=== PATIENT | male | born 1965 | race Caucasian/White ===

== ENCOUNTER 2019-02-01 00:47 | Emergency (ER) | payer OTHER ==
[~2019-02-01] VITALS: Ht 198.1 cm; Wt 120.2 kg
[~2019-02-01 00:47] MED LIST: ATEN50 PO; ESOM20 PO; FLUT110OIA IH; LEVA1.25 IH
[2019-02-01 03:11] LABS: BASOPHILS ABSOLUTE AUTO 0.05 K/mm3 (0.00-0.23); BASOPHILS PERCENT AUTO 0 % (0-2); EOSINOPHILS ABSOLUTE AUTO 0.05 K/mm3 (0.00-0.68); EOSINOPHILS PERCENT AUTO 0 % (0-6); Hematocrit 43.9 % (37.0-53.0); Hemoglobin 14.5 g/dL (13.5-17.5); IMMATURE GRAN ABSOLUTE AUTO 0.15 K/mm3 (0.00-0.10); IMMATURE GRAN PERCENT AUTO 1 % (0-1); LYMPHOCYTES PERCENT AUTO 16 % (21-46); MONOCYTES ABSOLUTE AUTO 1.24 K/mm3 (0.16-1.47); MONOCYTES PERCENT AUTO 9 % (4-13); Mean Corpuscular Volume 91 fL (80-100); Mean Platelet Volume 9.1 fL (9.1-12.4); NEUTROPHILS ABSOLUTE AUTO 10.47 K/mm3 (1.96-9.15); NEUTROPHILS PERCENT AUTO 74 % (41-73); Platelet Count 242 K/mm3 (150-400); RDW Standard Deviation 43.4 fL (35.1-46.3); Red Blood Cell Count 4.84 M/mm3 (4.30-5.90); White Blood Cell Count 14.16 K/mm3 (4.00-11.30)
[2019-02-01 03:28] LABS: Alanine Aminotransfer (ALT/SGP 20 U/L (12-78); Albumin, Blood 3.3 g/dL (3.4-5.0); Albumin/Globulin Ratio 0.8 (0.8-1.8); Alk Phos 135 U/L (50-136); Anion Gap 5 mmol/L (6-16); Aspartate Aminotrans (AST/SGOT 18 U/L (12-37); Bilirubin, Total 1.2 mg/dL (0.1-1.0); Blood Urea Nitrogen 22 mg/dL (8-24); Bun/Creatinine Ratio 27.5 (12.0-20.0); CO2, Blood 31 mmol/L (21-32); Calcium, Blood 8.8 mg/dL (8.5-10.1); Chloride, Blood 98 mmol/L (98-108); Globulin, Blood 4.1 g/dL (2.2-4.0); Glomerular Filtration Rate >60 (60-); Glucose, Blood 113 mg/dL (70-99); Potassium, Blood 3.8 mmol/L (3.5-5.5); Sodium, Blood 134 mmol/L (136-145); Total Protein, Blood 7.4 g/dL (6.4-8.2)
[2019-02-01] MEDS ORDERED: Vibramycin100 MG PO (03:36)
== END 2019-02-01 04:07 | disposition home or self-care (01) ==
LOC: ER 00:47
PROVIDERS: Emergency Medicine
DX: L03.116 Cellulitis of left lower limb (principal); D72.829 Elevated white blood cell count, unspecified; I10 Essential (primary) hypertension; Z87.891 Personal history of nicotine dependence; Z88.0 Allergy status to penicillin; Z88.2 Allergy status to sulfonamides
CPT/HCPCS: 36415; 73590; 80053; 85025; 96360; 96372-59; 99283-25; J1885; J7030

== ENCOUNTER 2021-03-26 21:57 | Emergency (ER) | payer SELFPAY ==
[~2021-03-26] VITALS: Ht 195.6 cm; Wt 127.0 kg
[~2021-03-26 21:57] MED LIST changes: +CLIN300 PO; +Vibramycin100 MG PO
== END 2021-03-26 23:59 | disposition home or self-care (01) ==
LOC: ER 21:57
DX: I83.892 Varicose veins of left lower extremity with other complications (principal); I10 Essential (primary) hypertension; J44.9 Chronic obstructive pulmonary disease, unspecified; K21.9 Gastro-esophageal reflux disease without esophagitis; G40.909 Epilepsy, unspecified, not intractable, without status epilepticus; Z88.0 Allergy status to penicillin; Z88.2 Allergy status to sulfonamides; Z88.5 Allergy status to narcotic agent
CPT/HCPCS: 99282

== ENCOUNTER 2023-04-30 21:52 | Inpatient (IN) | payer OTHER ==
[~2023-04-30] VITALS: Ht 195.6 cm; Wt 148.4 kg
[~2023-04-30 21:52] MED LIST changes: +AMLO5 PO; +FISH OIL 1,2001 EAC7 PO
[2023-04-30 23:39] LABS: BASOPHILS ABSOLUTE AUTO 0.08 K/mm3 (0.00-0.23); BASOPHILS PERCENT AUTO 0 % (0-2); EOSINOPHILS ABSOLUTE AUTO 0.01 K/mm3 (0.00-0.68); EOSINOPHILS PERCENT AUTO 0 % (0-6); Hematocrit 49.6 % (37.0-53.0); Hemoglobin 16.6 g/dL (13.5-17.5); IMMATURE GRAN ABSOLUTE AUTO 0.37 K/mm3 (0.00-0.10); IMMATURE GRAN PERCENT AUTO 2 % (0-1); LYMPHOCYTES ABSOLUTE AUTO 3.39 K/mm3 (0.84-5.20); LYMPHOCYTES PERCENT AUTO 15 % (21-46); MONOCYTES ABSOLUTE AUTO 1.56 K/mm3 (0.16-1.47); MONOCYTES PERCENT AUTO 7 % (4-13); Mean Corpuscular HGB 30.7 pg (26.0-34.0); Mean Corpuscular HGB Conc 33.5 g/dL (31.5-36.5); Mean Corpuscular Volume 92 fL (80-100); Mean Platelet Volume 8.9 fL (9.1-12.4); NEUTROPHILS ABSOLUTE AUTO 17.42 K/mm3 (1.96-9.15); NEUTROPHILS PERCENT AUTO 76 % (41-73); Platelet Count 170 K/mm3 (150-400); RDW Coefficient Variation 13.5 % (11.7-14.2); RDW Standard Deviation 45.8 fL (35.1-46.3); White Blood Cell Count 22.83 K/mm3 (4.00-11.30)
[2023-04-30 23:57] LABS: D-Dimer, Quantitative 0.82 mg/L FEU (0.00-0.52); International Normalized Ratio 1.19; Prothrombin Time Results 12.4 Sec (9.7-11.5)
[2023-05-01 00:01] LABS: Albumin, Blood 2.8 g/dL (3.4-5.0); Albumin/Globulin Ratio 0.5 (0.8-1.8); Bilirubin, Total 1.3 mg/dL (0.1-1.0); Bun/Creatinine Ratio 27.4 (12.0-20.0); Calcium, Blood 9.5 mg/dL (8.5-10.1); Creatinine, Blood 0.88 mg/dL (0.60-1.20); Globulin, Blood 5.3 g/dL (2.2-4.0); Potassium, Blood 4.3 mmol/L (3.5-5.5); Total Protein, Blood 8.1 g/dL (6.4-8.2)
[2023-05-01 01:24] LABS: Source, Urine Clean Catch
[2023-05-01 01:29] LABS: Appearance, Urine Clear (Clear); Bilirubin, Urine Neg (Neg); Blood, Urine 2+ (Neg); Color, Urine Amber (P-Yellow); Glucose Qualitative, Urine Neg (Neg); Ketones, Urine Neg (Neg); Leukocyte Esterase, Urine Neg (Neg); Nitrite, Urine Neg (Neg); Protein, Urine 4+ (Neg); Urobilinogen, Urine NORM (Normal)
[2023-05-01 01:46] LABS: Bacteria Few /hpf; Hyaline Casts 0-2 /lpf (0-2); Red Blood Cells, Urine 0-2 /hpf (0-2); Squamous Epithelial Cells Not Seen /hpf (Few); White Blood Cells, Urine 0-2 /hpf (0-5)
[2023-05-01 02:02] LABS: U Amphetamine Screen DETECTED; U Barbituate Screen Not Detected; U Benzodiazapine Screen Not Detected; U Buprenorphine Screen Not Detected; U Cannabinoids Screen DETECTED; U Cocaine Screen Not Detected; U Methadone Screen Not Detected; U Methamphetamine Screen DETECTED; U Opiates Screen Not Detected; U Oxycodone Screen Not Detected; U Phencyclidine Screen Not Detected
[2023-05-01 03:20] LABS: BASOPHILS ABSOLUTE AUTO 0.07 K/mm3 (0.00-0.23); BASOPHILS PERCENT AUTO 0 % (0-2); EOSINOPHILS ABSOLUTE AUTO 0.02 K/mm3 (0.00-0.68); EOSINOPHILS PERCENT AUTO 0 % (0-6); Hemoglobin 16.3 g/dL (13.5-17.5); IMMATURE GRAN ABSOLUTE AUTO 0.37 K/mm3 (0.00-0.10); IMMATURE GRAN PERCENT AUTO 2 % (0-1); LYMPHOCYTES ABSOLUTE AUTO 2.99 K/mm3 (0.84-5.20); LYMPHOCYTES PERCENT AUTO 14 % (21-46); MONOCYTES ABSOLUTE AUTO 1.36 K/mm3 (0.16-1.47); MONOCYTES PERCENT AUTO 6 % (4-13); Mean Corpuscular HGB 29.9 pg (26.0-34.0); Mean Corpuscular HGB Conc 32.6 g/dL (31.5-36.5); Mean Corpuscular Volume 92 fL (80-100); Mean Platelet Volume 9.1 fL (9.1-12.4); NEUTROPHILS ABSOLUTE AUTO 16.63 K/mm3 (1.96-9.15); NEUTROPHILS PERCENT AUTO 78 % (41-73); Platelet Count 187 K/mm3 (150-400); RDW Coefficient Variation 13.6 % (11.7-14.2); RDW Standard Deviation 45.9 fL (35.1-46.3); Red Blood Cell Count 5.45 M/mm3 (4.30-5.90); White Blood Cell Count 21.44 K/mm3 (4.00-11.30)
[2023-05-01 03:31] LABS: Albumin, Blood 2.8 g/dL (3.4-5.0); Albumin/Globulin Ratio 0.5 (0.8-1.8); Bilirubin, Total 1.1 mg/dL (0.1-1.0); Bun/Creatinine Ratio 25.6 (12.0-20.0); Calcium, Blood 9.1 mg/dL (8.5-10.1); Creatinine, Blood 0.82 mg/dL (0.60-1.20); Globulin, Blood 5.1 g/dL (2.2-4.0); Magnesium, Blood 2.2 mg/dL (1.6-2.4); Phosphorus, Blood 2.8 mg/dL (2.5-4.9); Potassium, Blood 4.3 mmol/L (3.5-5.5); Total Protein, Blood 7.9 g/dL (6.4-8.2)
[2023-05-01 03:50] VITALS: BP 157/87
--- NOTE | 2023-05-01 05:19 | NUR ---
SHIFT SUMMARY ASSUMED CARE OF PT AT 0350. PT IS A/OX4. HEART SOUNDS REGULAR. LUNG SOUNDS COURSE AND DIMINISHED. PT ON 2L NC WHILE SLEEPING. PT DESATS TO 85% BUT IS 92% WHILE AWAKE. PT STATES HE STILL HAS SOME CHEST DISCOMFORT BUT IS FEELING A LOT BETTER SINCE BEING ADMITTED. PT IS INDEPENDNT TO BATHROOM. PT HAS PURPLE EXTREMITIES IN WHICH IS STATES IS HIS NORMAL. PT SLEPT THE REST OF THE AM.
[2023-05-01 07:27] VITALS: BP 142/92
--- NOTE | 2023-05-01 07:44 | NUR ---
AM NOTE Pt wakes easily to verbal stimuli, oriented x4; falls asleep quickly. Calm and cooperative with care. Pt ind in room, resting in bed at this time. Pt denies pain, chest pain/pressure, sob, nausea, dizziness and numb/tingling. Tele sinus tach 100-120's, bp elevated. Spo2 >90% on 3l o2 via nc, tachypnic; ls coarse; pt found this am without o2, o2 saturation 78-86% on ra, replaced o2 at 4l, recovered quickly, tirated pt down to previous 2l, then pt desaturated while sleeping and titrated back up to 3l. Abd distended, firm, nontender, hypoactive bt t/o. Edema and discoloration noted to ble. Pt diaphoretic, temp 102.0, administered tylenol. Will continue to monitor.
[2023-05-01 12:00] VITALS: BP 125/89
--- NOTE | 2023-05-01 12:17 | NUR ---
ASSUMPTION OF CARE NOTE THIS RN ASSUMED CARE AT APPROX. 1100. PT IS SOMNOLENT BUT WAKES EASILY TO VERBAL STIMULI. VSS AT THIS TIME, SPO2 MAINTAINED >95% VIA 3L NC. PT DENIES FEELINGS OF CHEST PAIN/PRESSURE AT THIS TIME. LEVAQUIN IS INFUSING PER EMAR ORDERS IN L AC. CALL LIGHT IS W/IN REACH.
[2023-05-01 16:44] VITALS: BP 145/105
--- NOTE | 2023-05-01 18:21 | NUR ---
SHIFT SUMMARY PT IS ALERT AND ORIENTED X 4, HE IS ABLE TO MAKE HIS NEEDS KNOWN. VSS, SPO2 MAINTAINED >95% VIA 2L NC, PT DOES NOT WEAR 02 AT BASELINE BUT IS NOTED TO DESATURATE TO 80'S WHEN SLEEPING THEREFORE IS WEARING 2L NC PRIMARLY TO MAINTAIN O2 SATURATION DURING SLEEP. HE HAS DENIED FEELINGS OF CHEST PAIN/PRESSURE DURING SHIFT, SOB AND LIGHTHEADEDNESS/DIZZINESS. HE APPEARED DIAPHORETIC IN BEGINNING OF SHIFT AND WAS FEBRILE BUT HAS SINCE BEEN AFEBRILE, SEE EMAR FOR TEMPERATURE MANAGEMENT. HEPARIN DRIP IS INFUSING PER EMAR ORDERS. HE HAS BEEN INDEPENDENT/SBA TO BR TO VOID. HE APPEARED TO BE SLEEPING FOR MAJORITY OF SHIFT. CALL LIGHT IS W/IN REACH.
[2023-05-01 20:06] VITALS: BP 149/98
[2023-05-02 00:18] VITALS: BP 135/88
[2023-05-02 04:00] VITALS: BP 158/107
[2023-05-02 04:29] LABS: Hematocrit 50.5 % (37.0-53.0); Mean Corpuscular HGB Conc 31.7 g/dL (31.5-36.5); Mean Corpuscular Volume 95 fL (80-100); Mean Platelet Volume 9.3 fL (9.1-12.4); Platelet Count 184 K/mm3 (150-400); RDW Coefficient Variation 13.6 % (11.7-14.2); RDW Standard Deviation 47.8 fL (35.1-46.3); Red Blood Cell Count 5.34 M/mm3 (4.30-5.90); White Blood Cell Count 12.08 K/mm3 (4.00-11.30)
[2023-05-02 04:49] LABS: Calcium, Blood 9.1 mg/dL (8.5-10.1); Creatinine, Blood 0.78 mg/dL (0.60-1.20); Potassium, Blood 3.9 mmol/L (3.5-5.5)
--- NOTE | 2023-05-02 04:56 | NUR ---
SHIFT SUMMARY ASSUMED CARE OF PT AT 1900. PT IS A/OX4. HEART SOUNDS REGULAR. LUNG SOUNDS COURSE PT HAD HACKING PRODUCTIVE COUGH T/O THE NOC. SPUTUM PINK TINGED. PT HAD CP WHEN COUGHING. BUT WOULD DISAPPEAR WHILE AT REST. PT AWOKE AND TOOK A SHOWER. HEPRIN GTT RUNNING T/O THE NOC. PT C/O HEADACHE THIS AM, MEDICATED PER EMAR
[2023-05-02 07:36] VITALS: BP 141/88
--- NOTE | 2023-05-02 12:52 | NUR ---
AM NOTE: ASSUMED CARE OF PT, APPROX 0715, AFTER RECEIVING REPORT FROM TORIE BURRIS. PT HAS BEEN A&O, COOPERATIVE W/CARE, ANSWERING QUESTIONS APPROPRIATELY. PT DENIES SOB AT REST BUT STATES HE DOES GET SOB W/ACTIVITY. HARSH COUGH W/SMALL AMOUNT SPUTUM PRODUCTION W/CULTURE PENDING, O2 SATS >92% ON 3 L/MIN NC. PT DENIES CHEST PAIN AT REST BUT STATES HE DOES HAVE PAIN W/COUGHING THAT RESOLVES. REPEAT CT PE STUDY COMPLETED, RESULTS PENDING. HEPARIN CONTINUES INFUSING PER ORDERS. PURPLE/RED DISCOLORATION NOTED TO BILATERAL HANDS AND BLE, PT STATES NORMAL FOR HIM. PT HAS BEEN SBA FOR RESTROOM USE. AT THIS TIME, PT IS RESTING QUIETLY IN BED W/CALL LIGHT IN REACH. WILL CONTINUE TO MONITOR AND TREAT ACCORDINGLY UNTIL CHANGE OF SHIFT.
[2023-05-02 15:27] VITALS: BP 143/93
--- NOTE | 2023-05-02 18:51 | NUR ---
SHIFT SUMMARY: NO ACUTE CHANGES SINCE THIS AM's NOTE. PT CONTINUES A&Ox4, BEGINS TO NAP THIS EVENING AND O2 SATS OCCASIONALLY DROP BELOW 90% BUT QUICKLY RECOVER TO MID-HIGH 90s, O2 FLOW CURRENTLY AT 3 L/MIN NC. NO CHANGE TO SOB OR CP. PT ABLE TO MAKE NEEDS KNOWN. PT REPOSITIONING SELF, SBA TO RESTROOM, SHOWERS SELF INDEPENDENTLY THIS SHIFT. AT THIS TIME, PT IS RESTING QUIETLY IN ROOM WITH CALL LIGHT IN REACH. WILL CONTINUE TO MONITOR AND TREAT ACCORDINGLY UNTIL CHANGE OF SHIFT.
[2023-05-02 19:54] VITALS: BP 148/95
[2023-05-03 01:37] VITALS: BP 163/93
[2023-05-03 04:13] LABS: Hematocrit 50.9 % (37.0-53.0); Hemoglobin 16.1 g/dL (13.5-17.5); Mean Corpuscular HGB 30.1 pg (26.0-34.0); Mean Corpuscular HGB Conc 31.6 g/dL (31.5-36.5); Mean Corpuscular Volume 95 fL (80-100); Mean Platelet Volume 9.4 fL (9.1-12.4); Platelet Count 206 K/mm3 (150-400); RDW Coefficient Variation 13.5 % (11.7-14.2); RDW Standard Deviation 47.8 fL (35.1-46.3); Red Blood Cell Count 5.35 M/mm3 (4.30-5.90); White Blood Cell Count 7.55 K/mm3 (4.00-11.30)
[2023-05-03 04:33] LABS: Bun/Creatinine Ratio 19.8 (12.0-20.0); Creatinine, Blood 0.86 mg/dL (0.60-1.20)
--- NOTE | 2023-05-03 05:37 | NUR ---
SHIFT SUMMARY ASSUMED CARE OF PT AT 1900. PT IS A/OX4. HEART SOUNDS REGULAR. LUNG SOUNDS HAVE CRACKLES AT THE BASES. PT WORE 3L NC DURING THE NOC. PT DESATURATED WITH SLEEP BUT WOULD RETURN TO 90% AND ABOVE. PT C/O HEADACHE, MEDICATED PER EMAR. PT WALKED AROUND UNIT. PT C/O FEELING WEAK BUT TOLERATED IT WELL.
[2023-05-03 08:02] VITALS: BP 124/81
[2023-05-03 11:14] VITALS: BP 171/93
[2023-05-03] MEDS ORDERED: VISBIOME 112.51 EACH PO (11:16)
[2023-05-03 11:17] VITALS: BP 158/86
[2023-05-03] MEDS ORDERED: LEVOFLOXACIN750 MG PO (11:18)
[2023-05-03] MEDS ORDERED: ROBITUSSIN100 MG/5 M PO (11:18)
[2023-05-03] MEDS ORDERED: Prinivil10 MG PO (11:29)
[2023-05-03] MEDS ORDERED: METF500 PO (11:29)
--- NOTE | 2023-05-03 13:20 | NUR ---
DISCHARGE this rn assumed care at 0700. vital signs stable and remained stable. patient is alert and oriented x4. perrla. patient was independent in the room. see shift assessment for further detials. patient educated on importance of follow up appointments and to have a outpatient sleep study done. patient verbalized understanding and has an appointment scheduled. patient left with all belongings and in no distress. medications faxed to [email or web address]. patient educated on medications and importance of taking full course of abx.
== END 2023-05-03 13:09 | disposition home or self-care (01) | DRG 871 ==
LOC: ER 21:52 → PCU 05-01 03:04
PROVIDERS: Emergency Medicine; Family Medicine; Internal Medicine; ADMIT Internal Medicine
DX: A41.9 Sepsis, unspecified organism (principal); J18.9 Pneumonia, unspecified organism; J96.01 Acute respiratory failure with hypoxia; J44.0 Chronic obstructive pulmonary disease with (acute) lower respiratory infection; R65.20 Severe sepsis without septic shock; R79.1 Abnormal coagulation profile; G47.33 Obstructive sleep apnea (adult) (pediatric); I10 Essential (primary) hypertension; K21.9 Gastro-esophageal reflux disease without esophagitis; G40.909 Epilepsy, unspecified, not intractable, without status epilepticus; E87.70 Fluid overload, unspecified; F19.10 Other psychoactive substance abuse, uncomplicated; Z86.14 Personal history of Methicillin resistant Staphylococcus aureus infection; Z87.891 Personal history of nicotine dependence; Z28.21 Immunization not carried out because of patient refusal
CPT/HCPCS: 36415; 71046; 71260; 80048; 80053; 81001; 83605; 83735; 83880; 84100; 84145; 84484; 85025; 85027; 85379; 85610; 85730; 87040; 87070; 87205; 93005; 93010; 93306; 94640; 94664; 94760; 94761; 94762; 96365; 96368; 99285-25; A9270; J0456; J0696; J1644; J1650; J1956; J2250; J3010; J7030; J7050; Q9967

== ENCOUNTER 2023-11-05 01:22 | Emergency (ER) | payer OTHER ==
[~2023-11-05] VITALS: Ht 198.1 cm; Wt 145.2 kg
[~2023-11-05 01:22] MED LIST changes: +LEVOFLOXACIN750 MG PO; +METF500 PO; +Prinivil10 MG PO; +ROBITUSSIN100 MG/5 M PO; +VISBIOME 112.51 EACH PO
[2023-11-05] MEDS ORDERED: Acetaminophen 500 MG Tab PO ONE (03:30)
[2023-11-05] MEDS ORDERED: Ibuprofen 600 MG Tab PO ONE (03:30)
[2023-11-05 04:07] VITALS: BP 165/88
== END 2023-11-05 04:07 | disposition home or self-care (01) ==
LOC: ER 01:22
DX: S60.222A Contusion of left hand, initial encounter (principal); J44.9 Chronic obstructive pulmonary disease, unspecified; I10 Essential (primary) hypertension; K21.9 Gastro-esophageal reflux disease without esophagitis; W06.XXXA Fall from bed, initial encounter; Z87.891 Personal history of nicotine dependence; Z79.84 Long term (current) use of oral hypoglycemic drugs; Z79.899 Other long term (current) drug therapy; Z88.0 Allergy status to penicillin; Z88.2 Allergy status to sulfonamides; Z88.5 Allergy status to narcotic agent; Z91.013 Allergy to seafood
CPT/HCPCS: 73130; 99283-25; A9270

== ENCOUNTER 2024-03-08 03:33 | Emergency (ER) | payer OTHER ==
[~2024-03-08] VITALS: Ht 195.6 cm; Wt 145.2 kg
[2024-03-08] MEDS ORDERED: ALBUTEROL HFA 90MCG (03:59)
[2024-03-08] MEDS ORDERED: LOSARTAN POTASS25 M2 PO (03:59)
[2024-03-08 04:10] LABS: BASOPHILS ABSOLUTE AUTO 0.04 K/mm3 (0.00-0.23); BASOPHILS PERCENT AUTO 1 % (0-2); EOSINOPHILS ABSOLUTE AUTO 0.21 K/mm3 (0.00-0.68); EOSINOPHILS PERCENT AUTO 3 % (0-6); Hematocrit 49.2 % (37.0-53.0); Hemoglobin 16.4 g/dL (13.5-17.5); IMMATURE GRAN ABSOLUTE AUTO 0.06 K/mm3 (0.00-0.10); IMMATURE GRAN PERCENT AUTO 1 % (0-1); LYMPHOCYTES ABSOLUTE AUTO 2.65 K/mm3 (0.84-5.20); LYMPHOCYTES PERCENT AUTO 31 % (21-46); MONOCYTES ABSOLUTE AUTO 0.64 K/mm3 (0.16-1.47); MONOCYTES PERCENT AUTO 8 % (4-13); Mean Corpuscular HGB 31.8 pg (26.0-34.0); Mean Corpuscular HGB Conc 33.3 g/dL (31.5-36.5); Mean Corpuscular Volume 95 fL (80-100); Mean Platelet Volume 8.9 fL (9.1-12.4); NEUTROPHILS ABSOLUTE AUTO 4.92 K/mm3 (1.96-9.15); NEUTROPHILS PERCENT AUTO 58 % (41-73); Platelet Count 204 K/mm3 (150-400); RDW Coefficient Variation 13.2 % (11.7-14.2); RDW Standard Deviation 46.3 fL (35.1-46.3); Red Blood Cell Count 5.16 M/mm3 (4.30-5.90); White Blood Cell Count 8.52 K/mm3 (4.00-11.30)
[2024-03-08 04:30] LABS: Albumin, Blood 3.5 g/dL (3.4-5.0); Albumin/Globulin Ratio 0.9 (0.8-1.8); Bilirubin, Total 0.6 mg/dL (0.1-1.0); Bun/Creatinine Ratio 22.1 (12.0-20.0); Calcium, Blood 9.3 mg/dL (8.5-10.1); Creatinine, Blood 1.04 mg/dL (0.60-1.20); Globulin, Blood 4.1 g/dL (2.2-4.0); Potassium, Blood 4.3 mmol/L (3.5-5.5); Total Protein, Blood 7.6 g/dL (6.4-8.2)
[2024-03-08] MEDS ORDERED: MethylPREDNISolone Sod Succ 125 MG Vial IV ONE (06:25)
[2024-03-08] MEDS ORDERED: Ipratropium/Albuterol SulF 2.5-0.5MG/3 ML Amp INH ONE (06:25)
[2024-03-08] MEDS ORDERED: Furosemide 10 MG/ML 4ML Vial IV ONE (06:25)
[2024-03-08 07:30] VITALS: BP 176/103
[2024-03-08] MEDS ORDERED: FURO20 PO (09:07)
[2024-03-08] MEDS ORDERED: CIPR500 PO (09:08)
[2024-03-08] MEDS ORDERED: LevoFLOXacin 750 MG Tab PO ONE (09:10)
== END 2024-03-08 09:35 | disposition home or self-care (01) ==
LOC: ER 03:33
PROVIDERS: Student in an Organized Health Care Education/Training Program
DX: J18.9 Pneumonia, unspecified organism (principal); M79.89 Other specified soft tissue disorders; I10 Essential (primary) hypertension; J44.9 Chronic obstructive pulmonary disease, unspecified; K21.9 Gastro-esophageal reflux disease without esophagitis; Z87.891 Personal history of nicotine dependence; Z88.0 Allergy status to penicillin; Z88.2 Allergy status to sulfonamides; Z88.5 Allergy status to narcotic agent; Z91.013 Allergy to seafood; Z79.899 Other long term (current) drug therapy
CPT/HCPCS: 71045; 80053; 83880; 84484; 85025; 85379; 93005; 93010; 94640; 94664; 96374; 96375; 99285-25; A9270; J1940; J2919

== ENCOUNTER 2024-04-24 07:37 | Emergency (ER) | payer OTHER ==
[~2024-04-24] VITALS: Ht 200.7 cm; Wt 154.2 kg
[~2024-04-24 07:37] MED LIST changes: +ALBUTEROL HFA 90MCG; +CIPR500 PO; +FURO20 PO; +LOSARTAN POTASS25 M2 PO
[2024-04-24 07:48] VITALS: BP 178/98
[2024-04-24] MEDS ORDERED: Norco 5-325 Ta1 EACH PO (08:51)
== END 2024-04-24 09:11 | disposition home or self-care (01) ==
LOC: ER 07:37
DX: S22.41XA Multiple fractures of ribs, right side, initial encounter for closed fracture (principal); I10 Essential (primary) hypertension; J44.9 Chronic obstructive pulmonary disease, unspecified; K21.9 Gastro-esophageal reflux disease without esophagitis; V89.9XXA Person injured in unspecified vehicle accident, initial encounter; Z87.891 Personal history of nicotine dependence
CPT/HCPCS: 71101; 99283-25

== ENCOUNTER 2024-05-02 03:20 | Emergency (ER) | payer OTHER ==
[~2024-05-02] VITALS: Ht 198.1 cm; Wt 154.2 kg
[~2024-05-02 03:20] MED LIST changes: +Norco 5-325 Ta1 EACH PO
[2024-05-02] MEDS ORDERED: HYDROcodone 5-APAP 325 TAB PO ONE (05:30)
[2024-05-02 06:30] VITALS: BP 188/142
== END 2024-05-02 06:53 | disposition home or self-care (01) ==
LOC: ER 03:20
DX: S91.302A Unspecified open wound, left foot, initial encounter (principal); L97.228 Non-pressure chronic ulcer of left calf with other specified severity; I87.2 Venous insufficiency (chronic) (peripheral); Z87.891 Personal history of nicotine dependence; I10 Essential (primary) hypertension; J44.9 Chronic obstructive pulmonary disease, unspecified; K21.9 Gastro-esophageal reflux disease without esophagitis; Z86.14 Personal history of Methicillin resistant Staphylococcus aureus infection; Z88.0 Allergy status to penicillin; Z88.2 Allergy status to sulfonamides; Z88.5 Allergy status to narcotic agent; Z91.013 Allergy to seafood; Z79.899 Other long term (current) drug therapy; W22.09XA Striking against other stationary object, initial encounter
CPT/HCPCS: 73610; 99283-25; A9270

== ENCOUNTER 2024-08-13 05:22 | Inpatient (IN) | payer OTHER ==
[~2024-08-13] VITALS: Ht 195.6 cm; Wt 159.8 kg
[2024-08-13] VITALS (9 sets, daily range): BP systolic 114–142; BP diastolic 81–106
[2024-08-13 05:54] LABS: BASOPHILS ABSOLUTE AUTO 0.07 K/mm3 (0.00-0.23); BASOPHILS PERCENT AUTO 1 % (0-2); EOSINOPHILS ABSOLUTE AUTO 0.16 K/mm3 (0.00-0.68); EOSINOPHILS PERCENT AUTO 1 % (0-6); Hemoglobin 18.1 g/dL (13.5-17.5); IMMATURE GRAN ABSOLUTE AUTO 0.08 K/mm3 (0.00-0.10); IMMATURE GRAN PERCENT AUTO 1 % (0-1); LYMPHOCYTES ABSOLUTE AUTO 3.69 K/mm3 (0.84-5.20); LYMPHOCYTES PERCENT AUTO 33 % (21-46); MONOCYTES ABSOLUTE AUTO 0.93 K/mm3 (0.16-1.47); MONOCYTES PERCENT AUTO 8 % (4-13); Mean Corpuscular HGB 30.4 pg (26.0-34.0); Mean Corpuscular HGB Conc 31.2 g/dL (31.5-36.5); Mean Corpuscular Volume 98 fL (80-100); Mean Platelet Volume 9.1 fL (9.1-12.4); NEUTROPHILS ABSOLUTE AUTO 6.22 K/mm3 (1.96-9.15); NEUTROPHILS PERCENT AUTO 56 % (41-73); Platelet Count 260 K/mm3 (150-400); RDW Coefficient Variation 14.5 % (11.7-14.2); RDW Standard Deviation 51.8 fL (35.1-46.3); Red Blood Cell Count 5.95 M/mm3 (4.30-5.90); White Blood Cell Count 11.15 K/mm3 (4.00-11.30)
[2024-08-13 06:31] LABS: Albumin, Blood 3.3 g/dL (3.4-5.0); Albumin/Globulin Ratio 0.8 (0.8-1.8); Bilirubin, Total 0.9 mg/dL (0.1-1.0); Bun/Creatinine Ratio 19.7 (12.0-20.0); Creatinine, Blood 1.37 mg/dL (0.60-1.20); Magnesium, Blood 2.2 mg/dL (1.6-2.4); Phosphorus, Blood 3.9 mg/dL (2.5-4.9); Potassium, Blood 4.6 mmol/L (3.5-5.5); Thyroid Stimulating Hormone 5.02 uIU/mL (0.360-4.800); Total Protein, Blood 7.3 g/dL (6.4-8.2)
[2024-08-13] MEDS ORDERED: Diltiazem HCl 5 MG / ML 5ML Vial IV ONE (06:40)
[2024-08-13] MEDS ORDERED: NS 1,000 ML IV SCH ×2 (06:40→08:00)
[2024-08-13] MEDS ORDERED: dilTIAZem HCL 125 MG in Dextrose 5% 100 ML IV SCH (06:40)
[2024-08-13 07:06] LABS: International Normalized Ratio 1.12; Prothrombin Time Results 11.9 Sec (9.7-11.5)
[2024-08-13] MEDS ORDERED: Metoprolol Tartrate 25 MG Tab PO SCH (08:00)
[2024-08-13 08:43] LABS: Base Excess Venous 4.8 mmol/L; Bicarbonate Venous 26.6 mmol/L (24.0-30.0)
[2024-08-13] MEDS ORDERED: Apixaban 5 MG Tab PO SCH (09:00)
[2024-08-13] MEDS ORDERED: Enoxaparin 40 MG/0.4 ML SYR SC SCH (09:00)
[2024-08-13] MEDS ORDERED: Furosemide 10 MG/ML 4ML Vial IV SCH (13:00)
--- NOTE | 2024-08-13 14:00 | NUR ---
ARRIVAL TO PCU 15 PT ARRIVED TO PCU 15 AT APPROXIMATELY 1330. PT TRANSFERED FROM ER [facility] TO HOSPITAL BED WITH SBA. PT A&Ox4, CALLS AND COMMUNICATES NEEDS APPROPRIATELY. BP STABLE, AFLUTTER 110's, DENIES CP/PRESSURE. PT ARRIVED ON 6L VIA NC WITH SpO2 HIGH 90's, TITRATED DOWN TO RA-1L VIA NC WITH SpO2> 92%, DENIES SOB. DILT gtt INFUSING AT 15mg/hr. CALL LIGHT IN REACH.
--- NOTE | 2024-08-13 18:24 | NUR ---
SHIFT SUMMARY SEE PREVIOUS NOTE. NO ACUTE CHANGES. PT A&Ox4, CALLS AND COMMUNICATES NEEDS APPROPRIATELY. BP STABLE, AFLUTTER 110's, DENIES CP/PRESSURE. SpO2> 92% RA-1L VIA NC, DENIES SOB. DILT gtt INFUSING AT 15mg/hr. EDUCATION PROVIDED ON IMPORTANCE OF PT CALL FOR ASSISTANCE TO USE BATHROOM D/T TELE/CORDS/LINES. NO OTHER EVENTS, WILL REPORT TO ONCOMING RN.
[2024-08-14] VITALS (8 sets, daily range): BP systolic 104–162; BP diastolic 60–116
--- NOTE | 2024-08-14 06:03 | NUR ---
SHIFT SUMMARY PT IS A&O X4, ABLE TO MAKE NEEDS KNOWN, MOVING ALL EXTREMITIES WITH PURPOSE, IND TO BRP FOR CORD MANAGEMENT, USING CALL LIGHT APPROPRIATELY. CONTINUOUS SPO2, SPO2 GREATER THAN 90% WHILE AWAKE, PLACED ON 3L O2 VIA OXIMASK WHILE SLEEPING/ PT OCCATIONALY DESATURING WHILE SLEEPING/ RA WHILE AWAKE, PT DENIES SOB WHILE AT REST, LUNG SOUND COARSE T/O, PT REPORTS IMPROVED WORK OF BREATHING SINCE ADMISSION. CONTINUOUS TELE MONITORING, AFLUTTER 100-110 S/ CARDIZEM DRIP INFUSING PER EMAR, PT DENIES CHEST P/P, PULSES PRESENT T/O, BP STABLE WITH MAP GREATER THAN 65, PT HAS EDEMA TO BLE. BOWEL TONES PRESENT IN ALL 4Q, PT DENIES FEELINGS OF NAUSEA OR CONSTIPATION. PT VOIDING IND, URINE YELLOW IN COLOR. PT LEFT LEG WEEPING, BACK OF LEFT LEG HAS WOUND THAT PT STATES HAS BEEN THERE SINCE RITA/ PT DENIES PAIN TO THE AREA, BLE PURPLE IN COLOR BUT WARM TO THE TOUCH. BED LOWEST POSITION, CALL LIGHT IN REACH, AWAITING TO GIVE REPORT TO ONCOMING RN.
[2024-08-14 06:09] LABS: Hematocrit 51.9 % (37.0-53.0); Hemoglobin 16.4 g/dL (13.5-17.5); Mean Corpuscular HGB 30.3 pg (26.0-34.0); Mean Corpuscular HGB Conc 31.6 g/dL (31.5-36.5); Mean Corpuscular Volume 96 fL (80-100); Mean Platelet Volume 9.3 fL (9.1-12.4); Platelet Count 244 K/mm3 (150-400); RDW Coefficient Variation 14.6 % (11.7-14.2); Red Blood Cell Count 5.42 M/mm3 (4.30-5.90); White Blood Cell Count 11.93 K/mm3 (4.00-11.30)
[2024-08-14] MEDS ORDERED: Acetaminophen 325 MG TABLET PO PRN (06:15)
[2024-08-14 06:30] LABS: Calcium, Blood 8.3 mg/dL (8.5-10.1); Creatinine, Blood 1.05 mg/dL (0.60-1.20); Potassium, Blood 3.8 mmol/L (3.5-5.5)
[2024-08-14] MEDS ORDERED: Metoprolol Succinate 50 MG TABCR PO SCH ×3 (08:00→21:00)
--- NOTE | 2024-08-14 09:04 | NUR ---
AM NOTE: PT DIFFICULT TO AROUSE THIS MORNING, ONLY ALERT TO LOUD VERBAL STIMULI THEN FALLS BACK ASLEEP. PT PLACED ON 6L O2 USING THE OXYMASK WHILE SLEEPING, OTHERWISE DESATS TO THE 70s WITHOUT O2. CURRENTLY SATS AT 90. LUNGS SOUNDING COURSE, WITH PERIODS OF LABORED BREATHING. PHYSICIAN CAME TO BEDIS[place] AND DISCUSSED WEANING PT OFF THE DILTIAZEM DRIP AND STARTING METOPROLOL. PT RESTING IN BED NOW, CALL WITHIN REACH.
[2024-08-14] MEDS ORDERED: Metoprolol Tartrate 50 MG Tab PO STA (12:09)
--- NOTE | 2024-08-14 17:40 | NUR ---
SHIFT SUMMARY: PT A/O X4 AND CALLS APPROPRIATELY.PT WEANED OFF CARDIZEM DRIP, REAMINS A-FLUTTER HR 80-100s. PT ON 6-8L O2 WITH THE OXYMASK AND HAS A PRODUCTIVE WET COUGH.INDEP TO BATHROOM, VOIDING PALE YELLOW URINE. NO ACUTE CHANGES NOTED, PT LYING IN BED, CALL WITHIN REACH.
[2024-08-15] VITALS (20 sets, daily range): BP systolic 113–176; BP diastolic 76–114
[2024-08-15 04:53] LABS: Bun/Creatinine Ratio 18.3 (12.0-20.0); Calcium, Blood 8.2 mg/dL (8.5-10.1); Creatinine, Blood 1.2 mg/dL (0.60-1.20); Potassium, Blood 3.7 mmol/L (3.5-5.5)
[2024-08-15] MEDS ORDERED: Potassium Chloride 20 MEQ TabCR PO ONE (05:20)
--- NOTE | 2024-08-15 06:14 | NUR ---
SHIFT SUMMARY PT IS A&O X4, ABLE TO MAKE NEEDS KNOWN, MOVING ALL EXTREMITIES WITH PURPOSE, SBA TO BRP FOR CORD MANAGEMENT, USING CALL LIGHT APPROPRIATELY. DURING VITALS SPO2 GREATER THAN 90% ON 3L O2 VIA NC, PT PARTICIPATED IN SLEEP STUDY THIS SHIFT, NO SIGNS OF RESPIRATORY DISTRESS NOTED CONTINUOUS TELE MONITORING, AFLUTTER 100-110 S/ @ APPROX 0200 PT TOUHING 130-150 S NONSUSTAINING AND ASYMPOTMATIC/ @ APPROX 0600 PT SUSTAINING 130 S REMAINS ASYMPOTMATIC-MD MADE AWARE/NEW ORDERS PLACED, PT DENIES CHEST P/P, PULSES PRESENT T/O, BP STABLE WITH MAP GREATER THAN 65, PT HAS EDEMA TO BLE, CAP REFILL TO BLE GREATER THAN 3S. BOWEL TONES PRESENT IN ALL 4Q, PT DENIES FEELINGS OF NAUSEA OR CONSTIPATION. PT VOIDING IND, URINE YELLOW IN COLOR. PT LEFT LEG WEEPING, BACK OF LEFT LEG HAS WOUND THAT PT STATES HAS BEEN THERE SINCE RITA/ PT DENIES PAIN TO THE AREA, BLE PURPLE IN COLOR BUT WARM TO THE TOUCH. BED LOWEST POSITION, CALL LIGHT IN REACH, AWAITING TO GIVE REPORT TO ONCOMING RN.
[2024-08-15] MEDS ORDERED: Metoprolol Tartrate 1 MG/ML 5 ML VIAL IV ONE ×2 (06:15→11:00)
[2024-08-15] MEDS ORDERED: Metoprolol Succinate 50 MG TABCR PO SCH (09:00)
[2024-08-15] MEDS ORDERED: Empagliflozin 10 MG TAB PO SCH (09:00)
--- NOTE | 2024-08-15 10:20 | NUR ---
AM SUMMARY: PT A/O X4 LYING IN BED THIS MORNING. PT ON 3L O2 NC, SATS AT 93. LUNGS SOUNDED COURSE WITH CRACKLES. PT HR A-FLUTTER 120-150s. DR CHERY CAME BY THIS MORNING AND ADDED AN 1800CC FREE WATER RESTRICTION, DISCUSSED BLOOD GLUCOSE, NEW ORDERS PUT IN. LOWER LEG SWELLING, WITH REPORT OF NUMBNESS IN THE LEFT UPPER THIGH. PT USING URINAL INDEP AT BEDSIDE, CALL IN REACH.
[2024-08-15] MEDS ORDERED: Metoprolol Tartrate 1 MG/ML 5 ML VIAL IV PRN (11:00)
[2024-08-15] MEDS ORDERED: Insulin Human Lispro 100 Units/ML 3ML Syringe SC SCH (11:30)
--- NOTE | 2024-08-15 11:34 | NUR ---
Gave IV push lopressor, per orders, heart rate down in low 100's for short while, trending back up. Pt states feeling light headed, HR >110 and bp wnl. Notifid Dr Maldonado, new order for lopressor po 25 mg
[2024-08-15] MEDS ORDERED: Metoprolol Tartrate 25 MG Tab PO ONE (11:35)
--- NOTE | 2024-08-15 17:19 | NUR ---
SHIFT SUMMARY: PT SLEEPING OFF AND ON ALL DAY WITH EPISODES OF APNEIC BREATHING WHILE ASLEEP. PT ON 3-5L O2 NC, SATS AT 97. HR A-FLUTTER 110-120s. PT VOIDING INDEP. WITH URINAL AT BEDSIDE. PT HAD AN ECHO AND VENOUS DUPLEX COMPLETED AT BEDSIDE TODAY. PT CURRENTLY AWAKE IN BED WITH FAMILY VISITING AT BEDSIDE, CALL WITHIN REACH.
[2024-08-15] MEDS ORDERED: Ipratropium/Albuterol SulF 2.5-0.5MG/3 ML Amp INH PRN (22:25)
[2024-08-16] VITALS (9 sets, daily range): BP systolic 115–157; BP diastolic 77–116
[2024-08-16] MEDS ORDERED: Metoprolol Tartrate 1 MG/ML 5 ML VIAL IV ONE (00:10)
[2024-08-16 04:27] LABS: Bun/Creatinine Ratio 22.4 (12.0-20.0); Calcium, Blood 8.4 mg/dL (8.5-10.1); Creatinine, Blood 0.98 mg/dL (0.60-1.20); Potassium, Blood 3.6 mmol/L (3.5-5.5)
[2024-08-16] MEDS ORDERED: dilTIAZem HCL 30 MG TAB PO SCH (07:30)
--- NOTE | 2024-08-16 07:40 | NUR ---
SHIFT SUMMARY PT IS A&O X4, ABLE TO MAKE NEEDS KNOWN, MOVING ALL EXTREMITIES WITH PURPOSE, SBA TO BRP FOR CORD MANAGEMENT, USING CALL LIGHT APPROPRIATELY. CONTIOUS SPO2, SPO2 GREATER THAN 90% ON 3L O2 VIA NC WHILE AWAKE/ PT OCCASIONALLY DESTATING INTO THE 80 S WHILE SLEEPING BUT RECOVERS ON HIS OWN, NO SIGNS OF RESPIRATORY DISTRESS NOTED, LUNGS SOUND COARSE T/O AND DIM IN THE BASES CONTINUOUS TELE MONITORING, AFLUTTER 130-140 S THE START OF THIS SHIFT/ GAVE 2100 DOSE OF METOPROLOL EARLY AND STARTED CARDIZEM DRIP PER ORDERS ABOUT AN HOUR PT HR 110 S / @ APPROX 0000 NOTIFED MD THAT PT HAS BEEN ON MAX DOSE OF CARDIZEM AND HR SUSTAINING 110 S AND THE PT IS ASYMPTOMATIC-NEW ORDER PLACED FOR ONE TIME DOSE OF LOPRESSOR PUSH-HR 100 S , PT DENIES CHEST P/P, PULSES PRESENT T/O, BP STABLE WITH MAP GREATER THAN 65, PT HAS EDEMA TO BLE, CAP REFILL TO BLE GREATER THAN 3S. BOWEL TONES PRESENT IN ALL 4Q, PT DENIES FEELINGS OF NAUSEA OR CONSTIPATION. PT VOIDING IND, URINE YELLOW IN COLOR. PT LEFT LEG WEEPING, BACK OF LEFT LEG HAS WOUND THAT PT STATES HAS BEEN THERE SINCE RITA/ PT DENIES PAIN TO THE AREA, BLE PURPLE IN COLOR BUT WARM TO THE TOUCH. BED LOWEST POSITION, CALL LIGHT IN REACH, AWAITING TO GIVE REPORT TO ONCOMING RN.
[2024-08-16] MEDS ORDERED: Metoprolol Succinate 50 MG TABCR PO SCH (09:00)
--- NOTE | 2024-08-16 15:57 | NUR ---
[place] SARGENT'D AT 1430, HR 70-90. WILL CONTINUE TO CLOSELY MONITOR.
--- NOTE | 2024-08-16 17:52 | NUR ---
SHIFT SUMMARY; ASSUMED CARE AT 0700. CARDIZEM AT 15ML/HR WHEN ASSUMING CARE WITH HR 120-130. SEE CRITICAL CARE FLOW SHEET. PO RATE CONTROL MEDS GIVENTHIS AM, CARDIZEM DRIP TITRATED DOWN AND DC'D AT 1430. 3L VIA NC TO MAINTAIN SATS >92%. SLEEPS MOST OF SHIFT. 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 BLE PURPLE/RED FROM KNEES TO FEET. PEDAL PULSES FAINT. FEET DUSKY/MARSHALL IN COLOR. CAP REFILL >3. INSULIN PER EMAR, ABULATES IN ROOM TO BATHROOM AND USES URINAL AT BEDSIDE. COOPERATIVE WITH CARE, WILL CONTINUE TO MONITOR AND TREAT UNTIL REPORT GIVEN TO NOC SHIFT RN TO ASSUME CARE.
[2024-08-16] MEDS ORDERED: Diabetic GuaiFENesin 100 MG/5 ML 5MLUDC PO SCH (23:20)
[2024-08-16] MEDS ORDERED: Guaifenesin/Dextromethorphan Syrup 5 ML UDC PO PRN (23:20)
[2024-08-16] MEDS ORDERED: GuaiFENesin 600 MG TabCR PO SCH (23:35)
[2024-08-17 03:35] VITALS: BP 139/101
[2024-08-17 04:46] LABS: Bun/Creatinine Ratio 28.7 (12.0-20.0); Calcium, Blood 8.8 mg/dL (8.5-10.1); Creatinine, Blood 0.87 mg/dL (0.60-1.20); Potassium, Blood 3.5 mmol/L (3.5-5.5)
--- NOTE | 2024-08-17 06:46 | NUR ---
SHIFT SUMMARY: PT IS A&OX4. VSS ON 3L HFNC SATS >95%. AFTER SHOWER PT WAS ON ROOM AIR SATTING >95%. WHEN PT SLEEPS HE BECOMES APNEIC. PLACED PT ON AN OXY MASK AT 8L, SATS >90%. REMAINS IN A-FLUTTER 100-110'S. PT FREQUENTLY COUGHING, WITH SMALL AMOUNTS OF PHGLEM. CALLED MD, SEE NEW ORDERS FOR MUCINEX AND ROBITUSIN. ADMINISTERED 650MG TYLENOL FOR SOME PLEURITIC PAIN R/T COUGHING. PEDAL PULSES ARE FAINT USING THE DOPPLER. TOLERATING A CONS CARB DIET, WITH 1800 ML FREE WATER RESTRICTION. PT SHOWERED THIS EVENING. SBA TO BR. VOIDING INDEPENDENTLY IN URINAL AT BEDSIDE, LARGE AMOUNTS OF CLEAR, LIGHT YELLOW URINE. NO BM THIS SHIFT. BED IN LOWEST POSITION, CALL LIGHT WITHIN REACH. CALLS APPROPRIATELY AND IS ABLE TO ADVOCATE NEEDS EFFECTIVELY.
[2024-08-17 07:50] VITALS: BP 127/97
[2024-08-17] MEDS ORDERED: GlipiZIDE 5 MG TabCR PO SCH (08:00)
[2024-08-17] MEDS ORDERED: AcetaZOLAMIDE 250 MG Tab PO SCH (09:00)
[2024-08-17] MEDS ORDERED: Metoprolol Succinate 50 MG TABCR PO SCH (09:00)
[2024-08-17 12:01] VITALS: BP 128/109
[2024-08-17 15:09] VITALS: BP 137/101
--- NOTE | 2024-08-17 18:35 | NUR ---
SHIFT SUMMARY; ASSUMED CARE AT 0700. A/A/OX4. SLEEPS ON AND OFF DURING SHIFT BUT IS ARROUSABLE. 3L VIA NC 02 TO MAINTAIN SATS> 92% AMBULATES TO BATHROOM, REPOSITIONS IN BED. BLE DISCOLORATION AND WEAK PEDAL PULSES. DOPPLER COMPLETED TODAY. VSS, AFLUTTER 100'S T/O SHIFT. COOPERATIVE WITH CARE, NO ACUTE CHANGES, WILL CONTINUE TO MONITOR AND TREAT UNTIL CHANGE OF SHIFT.
[2024-08-17 19:49] VITALS: BP 140/98
[2024-08-18 00:32] VITALS: BP 137/97
[2024-08-18 04:32] VITALS: BP 123/86
[2024-08-18 05:01] LABS: Bun/Creatinine Ratio 32.8 (12.0-20.0); Calcium, Blood 8.7 mg/dL (8.5-10.1); Creatinine, Blood 0.92 mg/dL (0.60-1.20); Potassium, Blood 3.7 mmol/L (3.5-5.5)
--- NOTE | 2024-08-18 06:56 | NUR ---
SHIFT SUMMARY: PT IS A&OX4. VSS ON 3L HFNC SATS >93%. REMAINS IN A-FLUTTER 100-110'S. PT OCCASIONALLY COUGHING, WITH SMALL AMOUNTS OF PHGLEM. FAINT PEDAL PULSES USING THE DOPPLER. TOLERATING A CONS CARB DIET, WITH 1800 ML FLUID RESTRICTION. PT SHOWERED THIS EVENING. SBA TO BR. VOIDING INDEPENDENTLY IN URINAL AT BEDSIDE, LARGE AMOUNTS OF CLEAR, LIGHT YELLOW URINE. NO BM THIS SHIFT. BED IN LOWEST POSITION, CALL LIGHT WITHIN REACH. CALLS APPROPRIATELY AND IS ABLE TO ADVOCATE NEEDS EFFECTIVELY.
[2024-08-18 08:19] VITALS: BP 142/94
[2024-08-18 11:30] VITALS: BP 148/87
[2024-08-18 16:39] VITALS: BP 116/88
--- NOTE | 2024-08-18 18:06 | NUR ---
SHIFT SUMMARY: PT A&OX3 DISORIENTED TO DATE. 3L HI MARGIE NC MAINTAINING >94%. PT ANXIOUS AND WANTING TO LEAVE. EDUCATED ON CURRENT PLAN OF CARE AND OPTION TO LEAVE AMA. PT VERBALIZED UNDERSTANDING OF IMPORTANCE OF STAYING. ST 100S WHILE IN BED AND STAYED 100S WHILE MOVING AROUND ROOM. PT REPORTS NO SOB/CHEST PAIN. SBA TO BATHROOM. USES URINAL AT BEDSIDE WELL. FLUID RESTRICTION 1200ML MET ON DAY SHIFT. CONTINUE TO REINFORCE EDUCATION. USES CALL LIGHT APPROPRIATELY. BED IS LOCKED AND LOW.
--- NOTE | 2024-08-18 19:37 | NUR ---
ASSUMPTION OF CARE ASSUMED PT'S CARE AT 1900,BEDSIDE REPORT COMPLETED.PT AWAKE RESTING IN BED.PT REQUESTING A DRINK OF WATER OR CRANBERRY JUICE.PT INFORMED THAT WILL GET THE DRINK WITH MED PASS.PT RE-EDUCATED ON FLUID RESTRICTION,PT VERBARLIZES UNDERSTANDING.PT DENIES PAIN,DENIES FURTHER NEEDS.CALL LIGHT AND PT'S ITEMS WITHIN REACH,BED IN THE LOWEST POSITION.WILL CONTINUE TO MONITOR.
[2024-08-18 20:19] VITALS: BP 119/83
[2024-08-19] VITALS (7 sets, daily range): BP systolic 114–129; BP diastolic 84–93
[2024-08-19 05:00] LABS: Bun/Creatinine Ratio 31.1 (12.0-20.0); Creatinine, Blood 1.03 mg/dL (0.60-1.20); Potassium, Blood 3.3 mmol/L (3.5-5.5)
--- NOTE | 2024-08-19 06:41 | NUR ---
PT HAS BEEN AWAKE MOST OF THE NIGHT,USING THE CALL LIGHT FREQUENTLY ASKING STAFF FOR MULTIPLE THINGS THROUGHOUT THE NIGHT.PT DENIES PAIN,DENIES SOB.mAINTAINED OXYGEN SATURATION >92% ON 3L VIA HFNC.AFIB WITH HR 103-106.PT AWAKE,RESTING IN BED.DENIES PAIN,DENIES NEEDS AT THIS TIME.CALL LIGHT AND PT'S ITEMS WITHIN REACH.WILL GIVE REPORT TO INCOMING NURSE FOR CONTINUITY OF CARE.
[2024-08-19] MEDS ORDERED: Potassium Chloride 20 MEQ/15 ML UDC PO SCH (16:00)
--- NOTE | 2024-08-19 17:16 | NUR ---
SHIFT SUMMARY: PT A&OX4 VSS ON 3L HFNC MAINTAINING >92%. REMAINS AFLUTTER 100S-110S. TRIALED RA BUT PT BEGAN TO DESAT AND C/O FEELING DIZZY. 3L HFNC REAPPLIED TO PT AND O2 SATS RETURNED >92%. SBA TO BR AND IND BEDSIDE URINAL. CALLS APPROPRIATELY. FR 1800ML. PT REQUESTS FLUIDS FREQUENTLY. REINFORCED EDUCATION AND PT VERBALIZED UNDERSTANDING. CONTINUE TO REINFORCE EDUCATION ON FLUID RESTRICTION. PROVIDER ORDER SLEEP OXIMETRY TO BE COMPLETED AND CPAP WHILE SLEEPING. BED IS LOCKED AND LOW. CALL LIGHT WITHIN REACH.
[2024-08-20 04:14] LABS: BASOPHILS ABSOLUTE AUTO 0.06 K/mm3 (0.00-0.23); BASOPHILS PERCENT AUTO 1 % (0-2); EOSINOPHILS ABSOLUTE AUTO 0.08 K/mm3 (0.00-0.68); EOSINOPHILS PERCENT AUTO 1 % (0-6); Hematocrit 54.8 % (37.0-53.0); Hemoglobin 17.4 g/dL (13.5-17.5); IMMATURE GRAN ABSOLUTE AUTO 0.07 K/mm3 (0.00-0.10); IMMATURE GRAN PERCENT AUTO 1 % (0-1); LYMPHOCYTES ABSOLUTE AUTO 2.89 K/mm3 (0.84-5.20); LYMPHOCYTES PERCENT AUTO 30 % (21-46); MONOCYTES ABSOLUTE AUTO 0.74 K/mm3 (0.16-1.47); MONOCYTES PERCENT AUTO 8 % (4-13); Mean Corpuscular HGB 30.7 pg (26.0-34.0); Mean Corpuscular HGB Conc 31.8 g/dL (31.5-36.5); Mean Corpuscular Volume 97 fL (80-100); Mean Platelet Volume 8.8 fL (9.1-12.4); NEUTROPHILS ABSOLUTE AUTO 5.83 K/mm3 (1.96-9.15); NEUTROPHILS PERCENT AUTO 60 % (41-73); Platelet Count 216 K/mm3 (150-400); RDW Coefficient Variation 13.7 % (11.7-14.2); RDW Standard Deviation 49.6 fL (35.1-46.3); Red Blood Cell Count 5.66 M/mm3 (4.30-5.90); White Blood Cell Count 9.67 K/mm3 (4.00-11.30)
[2024-08-20 04:22] VITALS: BP 125/93
[2024-08-20 04:47] LABS: Calcium, Blood 8.5 mg/dL (8.5-10.1); Creatinine, Blood 1.13 mg/dL (0.60-1.20); Free Thyroxine 0.93 ng/dL (0.70-1.60); Magnesium, Blood 2.5 mg/dL (1.6-2.4); Potassium, Blood 3.5 mmol/L (3.5-5.5); Thyroid Stimulating Hormone 4.74 uIU/mL (0.360-4.800)
--- NOTE | 2024-08-20 05:32 | NUR ---
SHIFT SUMMARY A/OX4, USES CALL LIGHT FREQUENTLY TO VERBALIZE NEEDS. PT DENIES PAIN. SINUS RHYTHM WITH HR 100 S-110 S. PT DENIES CHEST PAIN/PRESSURE. BLE HAVE POOR PERFUSION, DISCOLORATION, COOL TO TOUCH. PEDAL PULSES PALPABLE,HOWEVER. PT SATS ABOVE 90% ON 3L NC. CPAP IN ROOM, PT DID NOT TOLERATE WELL, STATED THAT THE CPAP WAS MAKING HIM DRY AND THIRSTY. HE REQUESTED FOR RT TO TURN THE SETTINGS DOWN. RT NOTIFIED AND TO SEE PATIENT WHEN ABLE. PT AMBULATING WELL INDEPENDENTLY IN ROOM TO BATHROOM. HE IS CONTINENT OF URINE AND STOOL. ON AN 1800ML FLUID RESTRICTION. PT IS VERY THIRSTY BUT PACING HIS INTAKE WELL. PT RECEIVED NIGHT TIME ALOTTED FLUIDS BY 0500.
[2024-08-20 07:45] VITALS: BP 141/91
[2024-08-20 11:28] LABS: Base Excess Venous 14.3 mmol/L; Bicarbonate Venous 34.4 mmol/L (24.0-30.0); PCO2 Venous 62.2 mmHg (38-42); pH Blood Venous 7.41 (7.34-7.37)
[2024-08-20 11:30] VITALS: BP 106/83
--- NOTE | 2024-08-20 12:57 | NUR ---
REVIEW INTERIOR DESIGN CONSULTANT'S DOCUMENTATION AND AGREEABLE WITH FINDINGS.
[2024-08-20 16:07] VITALS: BP 133/99
--- NOTE | 2024-08-20 16:52 | NUR ---
AMA: PATIENT LEFT AMA; DR. SHERMAN NOTIFIED; AMA FORM SIGNED BY PATIENT. PATIENT OXYGEN SATURATION ABOVE 88% ON ROOMAIR. PATIENT EDUCATED AND ADVISED ON BENEFITS OF STAYING IN THE HOSPITAL. PATIENT GOT DRESSED, COLLECTED BELONGINGS, IV REMOVED, PATIENT WALKED OUT OF UNIT, NO SIGNS OR SYMPTOMS OF DISTRESS DURING.
[2024-08-21] MEDS ORDERED: Torsemide 20 MG TAB PO SCH (09:00)
== END 2024-08-20 18:14 | disposition home or self-care (01) | DRG 291 ==
LOC: ER 05:22 → PCU 05:23 → ER 07:57 → PCU 07:57
PROVIDERS: Emergency Medicine; Internal Medicine; ADMIT Internal Medicine
PROC: 5A09357 Assistance with Respiratory Ventilation, Less than 24 Consecutive Hours, Continuous Positive Airway Pressure (ICD-10-PCS; principal; 2024-08-19)
DX: I13.0 Hypertensive heart and chronic kidney disease with heart failure and stage 1 through stage 4 chronic kidney disease, or unspecified chronic kidney disease (principal); I50.33 Acute on chronic diastolic (congestive) heart failure; J96.01 Acute respiratory failure with hypoxia; Z68.41 Body mass index [BMI] 40.0-44.9, adult; I48.91 Unspecified atrial fibrillation; I45.10 Unspecified right bundle-branch block; J44.9 Chronic obstructive pulmonary disease, unspecified; K21.9 Gastro-esophageal reflux disease without esophagitis; N18.30 Chronic kidney disease, stage 3 unspecified; E11.51 Type 2 diabetes mellitus with diabetic peripheral angiopathy without gangrene; E11.22 Type 2 diabetes mellitus with diabetic chronic kidney disease; G47.33 Obstructive sleep apnea (adult) (pediatric); E86.0 Dehydration; Z88.0 Allergy status to penicillin; Z88.2 Allergy status to sulfonamides; Z88.5 Allergy status to narcotic agent; Z91.013 Allergy to seafood; Z79.51 Long term (current) use of inhaled steroids; Z79.899 Other long term (current) drug therapy; Z79.2 Long term (current) use of antibiotics; Z79.891 Long term (current) use of opiate analgesic; Z86.69 Personal history of other diseases of the nervous system and sense organs; Z86.14 Personal history of Methicillin resistant Staphylococcus aureus infection; Z87.891 Personal history of nicotine dependence; Z86.19 Personal history of other infectious and parasitic diseases; Z86.011 Personal history of benign neoplasm of the brain; Z91.148 Patient's other noncompliance with medication regimen for other reason
CPT/HCPCS: 36415; 71260; 80048; 80053; 82533; 82803; 82947; 83036; 83605; 83690; 83735; 83880; 84100; 84439; 84443; 84484; 85025; 85027; 85610; 85730; 87040; 93005; 93010; 93306; 93925; 93970; 94640; 94660; 94664; 94760; 94762; 96361; 96365-59; 96366; 96376-59; 99285-25; A9270; G0378; J1940; J7030; Q9967

== ENCOUNTER 2024-08-21 09:47 | Inpatient (IN) | payer OTHER ==
[~2024-08-21] VITALS: Ht 198.1 cm; Wt 142.8 kg
[2024-08-21 10:24] LABS: BASOPHILS ABSOLUTE AUTO 0.05 K/mm3 (0.00-0.23); BASOPHILS PERCENT AUTO 1 % (0-2); EOSINOPHILS ABSOLUTE AUTO 0.02 K/mm3 (0.00-0.68); EOSINOPHILS PERCENT AUTO 0 % (0-6); Hematocrit 53.2 % (37.0-53.0); Hemoglobin 17.4 g/dL (13.5-17.5); IMMATURE GRAN ABSOLUTE AUTO 0.05 K/mm3 (0.00-0.10); IMMATURE GRAN PERCENT AUTO 1 % (0-1); LYMPHOCYTES ABSOLUTE AUTO 1.99 K/mm3 (0.84-5.20); LYMPHOCYTES PERCENT AUTO 20 % (21-46); MONOCYTES PERCENT AUTO 9 % (4-13); Mean Corpuscular HGB 30.9 pg (26.0-34.0); Mean Corpuscular HGB Conc 32.7 g/dL (31.5-36.5); Mean Corpuscular Volume 95 fL (80-100); Mean Platelet Volume 9.3 fL (9.1-12.4); NEUTROPHILS ABSOLUTE AUTO 7.05 K/mm3 (1.96-9.15); NEUTROPHILS PERCENT AUTO 70 % (41-73); Platelet Count 197 K/mm3 (150-400); RDW Coefficient Variation 13.7 % (11.7-14.2); RDW Standard Deviation 48.1 fL (35.1-46.3); Red Blood Cell Count 5.63 M/mm3 (4.30-5.90); White Blood Cell Count 10.06 K/mm3 (4.00-11.30)
[2024-08-21] MEDS ORDERED: Furosemide 10 MG/ML 4ML Vial IV ONE (10:25)
[2024-08-21] MEDS ORDERED: Diltiazem HCl 5 MG / ML 5ML Vial IV ONE (10:30)
[2024-08-21] MEDS ORDERED: dilTIAZem HCL 125 MG in Dextrose 5% 100 ML IV SCH (10:30)
[2024-08-21 11:01] LABS: Albumin, Blood 3.5 g/dL (3.4-5.0); Bilirubin, Total 1.2 mg/dL (0.1-1.0); Bun/Creatinine Ratio 36.9 (12.0-20.0); Calcium, Blood 9.2 mg/dL (8.5-10.1); Creatinine, Blood 0.95 mg/dL (0.60-1.20); Globulin, Blood 3.5 g/dL (2.2-4.0); Potassium, Blood 3.9 mmol/L (3.5-5.5)
[2024-08-21 11:44] LABS: CORONAVIRUS COVID-19 AG Negative (NEGATIVE); INFLUENZA A AG Negative (NEGATIVE); INFLUENZA B AG Negative (NEGATIVE)
[2024-08-21 11:45] LABS: U Amphetamine Screen Not Detected; U Barbituate Screen Not Detected; U Benzodiazapine Screen Not Detected; U Buprenorphine Screen Not Detected; U Cannabinoids Screen DETECTED; U Cocaine Screen Not Detected; U Methadone Screen Not Detected; U Methamphetamine Screen Not Detected; U Opiates Screen Not Detected; U Oxycodone Screen Not Detected; U Phencyclidine Screen Not Detected
[2024-08-21] MEDS ORDERED: Ondansetron 4 MG TAB PO PRN (14:05)
[2024-08-21 14:50] VITALS: BP 133/85
[2024-08-21 15:10] VITALS: BP 152/95
[2024-08-21] MEDS ORDERED: Insulin Human Lispro 100 Units/ML 3ML Syringe SC SCH (16:30)
--- NOTE | 2024-08-21 16:34 | NUR ---
ARRIVAL TO PCU 15 / SHIFT SUMMARY PT ARRIVED TO PCU 7 AT APPROXIMATELY 1440. PT TRANSFERED FROM ER [facility] TO HOSPITAL BED WITH SBA. PT A&Ox4, CALLS AND COMMUNICATES NEEDS APPROPRIATELY. BP STABLE, AFLUTTER 110's, DENIES CP/PRESSURE. DILT gtt DISCONTINUED PER ORDER. SpO2> 92% 2L VIA NC, DENIES SOB. EDUCATION PROVIDED ON IMPORTANCE OF PT CALL FOR ASSISTANCE TO USE BATHROOM D/T TELE/CORDS/LINES. NO OTHER EVENTS, WILL REPORT TO ONCOMING RN.
[2024-08-21] MEDS ORDERED: Potassium Chloride 20 MEQ TabCR PO SCH (17:00)
[2024-08-21] MEDS ORDERED: Bumetanide 0.25 MG/ML 4ML ViaL IV SCH (18:00)
[2024-08-21 19:56] VITALS: BP 125/90
[2024-08-21] MEDS ORDERED: Apixaban 5 MG Tab PO SCH (21:00)
[2024-08-21] MEDS ORDERED: Docusate Sodium 100 MG Cap PO SCH (21:00)
[2024-08-21] MEDS ORDERED: Metoprolol Tartrate 50 MG Tab PO SCH (21:00)
[2024-08-22] VITALS (9 sets, daily range): BP systolic 113–147; BP diastolic 73–99
[2024-08-22 05:40] LABS: PCO2 Venous 50.7 mmHg (38-42)
--- NOTE | 2024-08-22 05:53 | NUR ---
SHIFT SUMMARY PT REMAINS A&OX4. PT COOPERATIVE THROUGHOUT NIGHT. VSS ON RA WHILE AWAKE AND USING CPAP HS REMAINS >92%. PT C/O COUGH HOWEVER NO SPUTUM PRODUCTION. PT IN AFLUTTER 110-120s. NO C/O CP/P. PT UP TO BATHROOM WITH SBA. NO FURTHER QUESTIONS OR CONCERNS AT THIS TIME. WILL CONTINUE WITH PLAN OF CARE.
[2024-08-22 06:14] LABS: BASOPHILS ABSOLUTE AUTO 0.06 K/mm3 (0.00-0.23); BASOPHILS PERCENT AUTO 1 % (0-2); EOSINOPHILS ABSOLUTE AUTO 0.09 K/mm3 (0.00-0.68); EOSINOPHILS PERCENT AUTO 1 % (0-6); Hematocrit 51.7 % (37.0-53.0); Hemoglobin 16.4 g/dL (13.5-17.5); IMMATURE GRAN ABSOLUTE AUTO 0.04 K/mm3 (0.00-0.10); IMMATURE GRAN PERCENT AUTO 1 % (0-1); LYMPHOCYTES PERCENT AUTO 30 % (21-46); MONOCYTES ABSOLUTE AUTO 0.89 K/mm3 (0.16-1.47); MONOCYTES PERCENT AUTO 11 % (4-13); Mean Corpuscular HGB 30.8 pg (26.0-34.0); Mean Corpuscular HGB Conc 31.7 g/dL (31.5-36.5); Mean Corpuscular Volume 97 fL (80-100); Mean Platelet Volume 9.6 fL (9.1-12.4); NEUTROPHILS PERCENT AUTO 57 % (41-73); Platelet Count 186 K/mm3 (150-400); RDW Coefficient Variation 13.9 % (11.7-14.2); RDW Standard Deviation 50.1 fL (35.1-46.3); Red Blood Cell Count 5.32 M/mm3 (4.30-5.90); White Blood Cell Count 8.08 K/mm3 (4.00-11.30)
[2024-08-22 06:35] LABS: Albumin/Globulin Ratio 0.9 (0.8-1.8); Bilirubin, Total 0.9 mg/dL (0.1-1.0); Bun/Creatinine Ratio 26.7 (12.0-20.0); Calcium, Blood 8.5 mg/dL (8.5-10.1); Creatinine, Blood 0.94 mg/dL (0.60-1.20); Globulin, Blood 3.4 g/dL (2.2-4.0); Potassium, Blood 3.4 mmol/L (3.5-5.5); Total Protein, Blood 6.4 g/dL (6.4-8.2)
[2024-08-22] MEDS ORDERED: Empagliflozin 25 MG TAB PO SCH (09:00)
[2024-08-22] MEDS ORDERED: dilTIAZem HCL 30 MG TAB PO SCH (11:30)
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
[2024-08-23] VITALS (10 sets, daily range): BP systolic 99–144; BP diastolic 66–102
--- NOTE | 2024-08-23 04:28 | NUR ---
SHIFT SUMMARY NO ACUTE CHANGES OVERNIGHT. PT REMAINS IN AFLUTTER 100s-110s AT REST. MAX 170s WITH ACTIVITY. PT TOLERATING CPAP FOR MOST OF NIGHT HOWEVER STILL SOMETIMES REFUSES AND JUST USES 1L NC TO MAINTAIN >92%. NO C/O PAIN. PT L LEG WOUND COVERED WITH MEPILEX. THIS NURSE ALSO MOISTERIZED PTS FEET PER REQUEST. PT HAS GOOD OUTPUT THROUGHOUT NIGHT. NO FURTHER QUESTIONS OR CONCERNS AT THIS TIME. WILL CONTINUE WITH PLAN OF CARE.
[2024-08-23 04:48] LABS: BASOPHILS ABSOLUTE AUTO 0.05 K/mm3 (0.00-0.23); BASOPHILS PERCENT AUTO 1 % (0-2); EOSINOPHILS ABSOLUTE AUTO 0.13 K/mm3 (0.00-0.68); EOSINOPHILS PERCENT AUTO 1 % (0-6); Hematocrit 53.3 % (37.0-53.0); IMMATURE GRAN ABSOLUTE AUTO 0.05 K/mm3 (0.00-0.10); IMMATURE GRAN PERCENT AUTO 1 % (0-1); LYMPHOCYTES ABSOLUTE AUTO 2.59 K/mm3 (0.84-5.20); LYMPHOCYTES PERCENT AUTO 26 % (21-46); MONOCYTES ABSOLUTE AUTO 0.92 K/mm3 (0.16-1.47); MONOCYTES PERCENT AUTO 9 % (4-13); Mean Corpuscular HGB 30.5 pg (26.0-34.0); Mean Corpuscular HGB Conc 31.9 g/dL (31.5-36.5); Mean Corpuscular Volume 96 fL (80-100); Mean Platelet Volume 9.9 fL (9.1-12.4); NEUTROPHILS ABSOLUTE AUTO 6.14 K/mm3 (1.96-9.15); NEUTROPHILS PERCENT AUTO 62 % (41-73); Platelet Count 205 K/mm3 (150-400); RDW Coefficient Variation 13.8 % (11.7-14.2); RDW Standard Deviation 49.3 fL (35.1-46.3); Red Blood Cell Count 5.57 M/mm3 (4.30-5.90); White Blood Cell Count 9.88 K/mm3 (4.00-11.30)
[2024-08-23 05:06] LABS: Bun/Creatinine Ratio 28.7 (12.0-20.0); Calcium, Blood 9.2 mg/dL (8.5-10.1); Creatinine, Blood 0.94 mg/dL (0.60-1.20); Potassium, Blood 3.3 mmol/L (3.5-5.5)
[2024-08-23] MEDS ORDERED: Metoprolol Tartrate 1 MG/ML 5 ML VIAL IV ONE (07:35)
[2024-08-23] MEDS ORDERED: Metoprolol Tartrate 5 ML IV ONE (07:35)
[2024-08-23] MEDS ORDERED: Potassium Chl 20MEQ/Water100ML 100 ML IV SCH (07:45)
[2024-08-23 07:54] LABS: Magnesium, Blood 2.3 mg/dL (1.6-2.4)
--- NOTE | 2024-08-23 08:00 | NUR ---
UPDATE CALLED IN TO ROOM BY HOUSING COURT JUDGE FOR HR 200'S. PT AWAKE AND ALERT ON CPAP WITH SATS >90%. PT DENIES ANY CP/PRESSURE. ATTEMPTED VALSALVA MANEUVER WITH TEMPORARY DECREASE IN HR TO 160'S. WITHIN MINUTES HR BACK UP TO 200'S. BP STABLE. RAPID RESPONSE CALLED AND IV LOPRESSOR GIVEN. SEE RAPID RESPONSE SHEET. DR. SHERMAN AT BEDSIDE WITH NEW ORDERS.
[2024-08-23] MEDS ORDERED: NS 250 ML IV PRN (08:45)
--- NOTE | 2024-08-23 08:45 | NUR ---
UPDATE HR REMAINS AFLUTTER, BUT RATE NOW IN THE 100'S. BP STABLE. PT DENIES ANY PAIN. KCL INFUSING PER ORDERS. PLAN TO RECHECK POTASSIUM LAB AFTER INFUSION COMPLETE. PT REQUESTING CPAP TO BE PLACED ON SO HE CAN SLEEP. CALL LIGHT IN REACH.
[2024-08-23] MEDS ORDERED: Digoxin 0.25 MG/ML 2ML Amp IV SCH (16:00)
--- NOTE | 2024-08-23 16:40 | NUR ---
SHIFT SUMMARY PT REMAINS ALERT AND ORIENTED. BP STABLE. HR HAS REMAINED AFLUTTER. RATE IMPROVED FROM THIS AM TRENDING IN THE 100'S WHILE AT REST. UP TO 150'S WITH ACTIVITY. PT DENIES ANY CP. O2 SATS HAVE REMAINED ABOVE 90% ON 2L NC. PT USED CPAP AT TIMES FOR SLEEPING. PT ABLE TO AMBULATE WITH SBA TO BATHROOM NEEDED TO VOID. PT ABLE TO REPOSITION HIMSELF IN THE BED AND GET UP TO RECLINER FOR MEALS. WILL CONTINUE PLAN OF CARE AND REPORT OFF TO ONCOMING RN
--- NOTE | 2024-08-23 18:11 | NUR ---
UPDATE HR UP TO THE 160-170'S. PT DENIES ANY CP/DIZZINESS. DR. SHERMAN CALLED AND UPDATED. NO NEW MEDICATIONS AT THIS TIME.
[2024-08-23] MEDS ORDERED: Metoprolol Tartrate 1 MG/ML 5 ML VIAL IV PRN (20:00)
[2024-08-24] VITALS (7 sets, daily range): BP systolic 11–151; BP diastolic 69–104
--- NOTE | 2024-08-24 03:31 | NUR ---
A/O X 4. ON CPAP AT 7L WHILE SLEEPING, AND NC WHILE AWAKE AT 2L. SATURATION >90. HR IN THE 160'S WHEN AMBULATING TO THE BATHROOM AT THE BEGINING OF SHIFT. DR MUHAMMAD MADE AWARE WITH ORDER FOR PRN LOPPRESSOR RECEIVED. LOPPRESSOR ADMINISTERED PER EMAR FOR HR OF 160 AT 0320 WHILE PATIENT WAS SLEEPIN, AND HR IS NOW 109 FROM 160. DENIES CHEST PAIN/PRESSURE/SOB. WILL CONTINUE TO MONITOR PATIENT. CALLS APPROPRIATELY. CALL GARCIA IS WITHIN REACH AND BED IS AT THE LOWEST POSITION.
[2024-08-24 04:21] LABS: BASOPHILS ABSOLUTE AUTO 0.04 K/mm3 (0.00-0.23); BASOPHILS PERCENT AUTO 1 % (0-2); EOSINOPHILS ABSOLUTE AUTO 0.13 K/mm3 (0.00-0.68); EOSINOPHILS PERCENT AUTO 2 % (0-6); Hematocrit 52.7 % (37.0-53.0); Hemoglobin 16.7 g/dL (13.5-17.5); IMMATURE GRAN ABSOLUTE AUTO 0.05 K/mm3 (0.00-0.10); IMMATURE GRAN PERCENT AUTO 1 % (0-1); LYMPHOCYTES ABSOLUTE AUTO 2.46 K/mm3 (0.84-5.20); LYMPHOCYTES PERCENT AUTO 31 % (21-46); MONOCYTES ABSOLUTE AUTO 0.72 K/mm3 (0.16-1.47); MONOCYTES PERCENT AUTO 9 % (4-13); Mean Corpuscular HGB 29.9 pg (26.0-34.0); Mean Corpuscular HGB Conc 31.7 g/dL (31.5-36.5); Mean Corpuscular Volume 94 fL (80-100); Mean Platelet Volume 9.6 fL (9.1-12.4); NEUTROPHILS ABSOLUTE AUTO 4.62 K/mm3 (1.96-9.15); NEUTROPHILS PERCENT AUTO 58 % (41-73); Platelet Count 204 K/mm3 (150-400); RDW Coefficient Variation 13.7 % (11.7-14.2); RDW Standard Deviation 47.9 fL (35.1-46.3); Red Blood Cell Count 5.58 M/mm3 (4.30-5.90); White Blood Cell Count 8.02 K/mm3 (4.00-11.30)
[2024-08-24 04:51] LABS: Magnesium, Blood 2.3 mg/dL (1.6-2.4)
[2024-08-24 04:59] LABS: Alanine Aminotransfer (ALT/SGP 22 U/L (12-78); Albumin, Blood 3.4 g/dL (3.4-5.0); Alk Phos 83 U/L (50-136); Anion Gap 9 mmol/L (3-11); Aspartate Aminotrans (AST/SGOT 21 U/L (12-37); Blood Urea Nitrogen 27 mg/dL (8-24); Bun/Creatinine Ratio 29.4 (12.0-20.0); CO2, Blood 40 mmol/L (21-32); Calcium, Blood 8.8 mg/dL (8.5-10.1); Chloride, Blood 90 mmol/L (98-108); Creatinine, Blood 0.92 mg/dL (0.60-1.20); Globulin, Blood 3.5 g/dL (2.2-4.0); Glomerular Filtration Rate 96 (60-); Glucose, Blood 126 mg/dL (70-99); Potassium, Blood 3.4 mmol/L (3.5-5.5); Sodium, Blood 136 mmol/L (136-145); Total Protein, Blood 6.9 g/dL (6.4-8.2)
[2024-08-24] MEDS ORDERED: Digoxin 0.25 MG Tab PO SCH (08:00)
[2024-08-24] MEDS ORDERED: Torsemide 20 MG TAB PO SCH (09:00)
[2024-08-24] MEDS ORDERED: Potassium Chloride 20 MEQ TabCR PO SCH (09:00)
[2024-08-24] MEDS ORDERED: Spironolactone 25 MG Tab PO SCH (09:00)
--- NOTE | 2024-08-24 15:58 | NUR ---
PATIENT UP FOR WALK IN UNIT WITH THIS RN, PATIENT MAINTAIN HEART RATE IN THE ONE TEENS TO ONE TWENTIES; PATIENT DENIED ANY RACING HEART, PALPATIONS, CHEST PAIN WITH WALKING. PATIENT MAINTAIN OXYGEN SATS FROM 93-95%; PATIENT EXPRESSED SOB WITH EXERTION ALTHOUGH SPO2 SATS REMAINED WNL.
--- NOTE | 2024-08-24 17:28 | NUR ---
SHIFT SUMMARY. PATIENT IS A&OX4. PATIENTS HEART RATE IN THE ONE TEENS TO ONE TWENTIES. PATIENT DESATTING WHEN HE SLEEPS INTO THE LOW 80'S, CPAP ON WHEN PATIENT SLEEPING WITH A 7L BLEED IN. PATIENT REPORTS HE TENDS TO HOLD HIS BREATH WHEN HE EATS, PATIENTS HEART RATE INCREASED WITH EATING TO ONE FORTIES TO ONE FIFTIES AT TIMES DURING EATING. PATIENT IS UP INDEPENDENT IN ROOM TO THE BATHROOM USING THE URINAL. PATIENT UP TO WALK TODAY; SEE PREVIOUS NOTE. PATIENT REPORTS THAT HE DOES NOT HAVE A GLUCOMETER, TEST STRIPS, LANCETS, INSULIN OR PEN NEEDLE TOPS FOR INSULIN AND WILL NEED THESE ITEMS WITH DISCHARGE. PATIENT REPORTS THAT HIS DAD WILL PAY FOR HOME OXYGEN MACHINE i.e CPAP/BIPAP IF NEEDED. PATIENT IS PLEASANT AND COOPERATIVE WITH CARE. PATIENT DENIES ANY NEEDS AT THIS TIME. PATIENT IS ABLE TO REPOSITION SELF. BED IS LOCKED IN THE LOWEST POSITION WITH CALL LIGHT IN REACH, CARE IS ONGOING. PATIENT IS ON 2L'S VIA NASAL CANNULA.
[2024-08-25] VITALS (8 sets, daily range): BP systolic 101–143; BP diastolic 73–113
--- NOTE | 2024-08-25 04:31 | NUR ---
A/O X 4. ON 2L NC/SATURATION > 90. HR IN THE 109-120S AT REST AND GOES UP TO 170'S WHEN PATIENT GETS UP TO USE THE URINAL. DENIES CHEST PAIN/PRESSURE. BP STABLE WITH MAP > 65. CALLS APPROPRIATELY. CALL LIGHT IS WITHIN REACH AND BED IS AT THE LOWEST POSITION.
[2024-08-25 04:55] LABS: BASOPHILS ABSOLUTE AUTO 0.05 K/mm3 (0.00-0.23); BASOPHILS PERCENT AUTO 1 % (0-2); EOSINOPHILS ABSOLUTE AUTO 0.12 K/mm3 (0.00-0.68); EOSINOPHILS PERCENT AUTO 2 % (0-6); Hematocrit 53.3 % (37.0-53.0); Hemoglobin 16.9 g/dL (13.5-17.5); IMMATURE GRAN ABSOLUTE AUTO 0.04 K/mm3 (0.00-0.10); IMMATURE GRAN PERCENT AUTO 1 % (0-1); LYMPHOCYTES ABSOLUTE AUTO 2.35 K/mm3 (0.84-5.20); LYMPHOCYTES PERCENT AUTO 29 % (21-46); MONOCYTES ABSOLUTE AUTO 0.61 K/mm3 (0.16-1.47); MONOCYTES PERCENT AUTO 8 % (4-13); Mean Corpuscular HGB 30.6 pg (26.0-34.0); Mean Corpuscular HGB Conc 31.7 g/dL (31.5-36.5); Mean Corpuscular Volume 97 fL (80-100); Mean Platelet Volume 9.1 fL (9.1-12.4); NEUTROPHILS ABSOLUTE AUTO 4.98 K/mm3 (1.96-9.15); NEUTROPHILS PERCENT AUTO 61 % (41-73); Platelet Count 201 K/mm3 (150-400); RDW Coefficient Variation 13.5 % (11.7-14.2); RDW Standard Deviation 48.8 fL (35.1-46.3); Red Blood Cell Count 5.52 M/mm3 (4.30-5.90); White Blood Cell Count 8.15 K/mm3 (4.00-11.30)
[2024-08-25 05:27] LABS: Anion Gap 5 mmol/L (3-11); Blood Urea Nitrogen 26 mg/dL (8-24); CO2, Blood 42 mmol/L (21-32); Calcium, Blood 9.4 mg/dL (8.5-10.1); Chloride, Blood 90 mmol/L (98-108); Creatinine, Blood 0.93 mg/dL (0.60-1.20); Digoxin (Lanoxin) 0.86 ug/mL (0.80-2.00); Glomerular Filtration Rate 95 (60-); Glucose, Blood 181 mg/dL (70-99); Potassium, Blood 3.9 mmol/L (3.5-5.5); Sodium, Blood 133 mmol/L (136-145)
[2024-08-25] MEDS ORDERED: Digoxin 0.125 MG Tab PO ONE (09:20)
--- NOTE | 2024-08-25 14:27 | NUR ---
PATIENT UP FOR A WALK AROUND THE UNIT, PATIENT ABLE TO WALK TO PATIENT ENTRANCE AND [facility] PCU UNIT MAINTAINING HEART RATE IN THE ONE TEENS AND OXYGEN SATS BETWEEN 93-95% ON RA; PATIENT REPORTS SOME SOB TOWARDS END OF WALK, PATIENT DOES HAVE A COUGH THAT HE REPORTS IS MOIST NOW AND HE IS GETTING CLEAR FLEM UP AT TIMES WHEN HE COUGHS. PATIENT TOLERATED WALK W/O OXYGEN. PATIENT IS CURRENTLY IN ROOM ON RA SATTING >90%.
--- NOTE | 2024-08-25 15:01 | NUR ---
SHIFT SUMMARY/TRANSFER OF CARE TO STEFANI Hamlin RN. PATIENT IS A&OX4, INDEPENDENT IN ROOM. PATIENT CALLS APPROPRIATELY AND IS ABLE TO MAKE HIS NEEDS KNOWN. PATIENT UP TO WALK THIS SHIFT-SEE OTHER NOTE. PATIENTS HEART RATE ELEVATED AT BEGINNING OF SHIFT RANGING FROM 150-170'S-RATE IMPROVED AFTER AM MEDICATIONS. PATIENT USING 2LPM VIA NASAL CANNULA AT BEGINNING OF SHIFT-AT THIS TIME PATIENT IS CURRENTLY ON RA SATTING >92%. PATIENT IS ANXIOUS TO LEAVE TOMORROW. PATIENTS DAD WILL PURCHASE HOME CPAP MACHINE FOR PATIENT. PATIENT IS TO HAVE A SLEEP OXOMETERY TEST TONIGHT 08/25/24 WITH CPAP WITH NO BLEED IN-PATIENT NOTIFIED AND EDUCATED, PATIENT IS RECEPTIVE. PATIENTS NEEDS ADDRESSED, PATIENT DENIES NEEDS AT THIS TIME. PLAN IS FOR PATIENT TO DISCHARGE 08/26/24 HOME WITH CPAP. UPDATES GIVEN TO STEFANI Hamlin RN. PATIENT INFORMED THIS RN WILL BE LEAVING AND STEFANI Hamlin RN TO TAKE OVER PRIMARY CARE.
--- NOTE | 2024-08-25 19:24 | NUR ---
EOS: ONLY CHANGES FROM PREVIOUS RN NOTE IS PATIENT WITH AMBULATION STARTED TO INCREASE SUSTAINING 170'S RECOVERED WELL AND WITH IMPROVED SPEED CURRENLTY IN THE 118'S WHEN INCREASED HR WITH AMBULATION PATIENT HAD NO INCREASED SOB CHEST PAIN OR SYMPTOMS. PLAN OF CARE CONTINUES. NO FURTHER ACUTE CONCERNS NOT ALREADY ADDRESSED.
[2024-08-26 04:10] VITALS: BP 118/81
[2024-08-26 05:08] LABS: Anion Gap 6 mmol/L (3-11); Blood Urea Nitrogen 26 mg/dL (8-24); Bun/Creatinine Ratio 29.6 (12.0-20.0); CO2, Blood 40 mmol/L (21-32); Calcium, Blood 9.4 mg/dL (8.5-10.1); Chloride, Blood 92 mmol/L (98-108); Creatinine, Blood 0.88 mg/dL (0.60-1.20); Digoxin (Lanoxin) 0.85 ug/mL (0.80-2.00); Glomerular Filtration Rate 99 (60-); Glucose, Blood 133 mg/dL (70-99); Potassium, Blood 3.8 mmol/L (3.5-5.5); Sodium, Blood 134 mmol/L (136-145)
--- NOTE | 2024-08-26 05:16 | NUR ---
SHIFT SUMMURY: A/O X4. ON NC AT 2 L WITH SATURATION >90/ USED CPAP WHEN SLEEPING. HR AFIB/ A FLUTTER WTIH INCREASES UPTO 150 WHEN PATIENT GETS UP TO URINATE. EKG PERFORMED AND WAS COMPARABLE TO PREVIOS EKG. DENIES CHEST PAIN/ PRESSURE. BLOOD PRESSURE STABLE WITH MAP>65.CALLS APPROPRIATELY.
[2024-08-26 07:52] VITALS: BP 119/84
[2024-08-26] MEDS ORDERED: Digoxin 0.25 MG Tab PO SCH (09:00)
[2024-08-26] MEDS ORDERED: ELIQUIS5 M2 PO (10:57)
[2024-08-26] MEDS ORDERED: DOCU100 PO (10:58)
[2024-08-26] MEDS ORDERED: DIGOX250 MCG PO (10:58)
[2024-08-26] MEDS ORDERED: METO100 PO (10:59)
[2024-08-26] MEDS ORDERED: JARDIANCE25 MG PO (10:59)
[2024-08-26] MEDS ORDERED: SPIR25 PO (11:00)
[2024-08-26] MEDS ORDERED: POTCHL20ER PO (11:00)
[2024-08-26] MEDS ORDERED: TORSE20 PO (11:01)
[2024-08-26 11:35] VITALS: BP 108/83
[2024-08-26 15:56] VITALS: BP 119/101
--- NOTE | 2024-08-26 16:06 | NUR ---
PATIENT DISCHARGED. DISCUSSED DISCHARGE INSTRUCTIONS WITH PATIENT AND WENT OVER MEDICATIONS-PATIENT VERBALIZES UNDERSTANDING. PATIENTS MEDICATIONS FAXED TO TRIS[facility] MALLORY IS SET TO SEE PATIENT AT HIS HOME AT 1700. PATIENTS POWERGLIDE REMOVED W/O DIFFICULTY-PATIENT EDUCATED ON AFTER CARE OF PERIPHERAL LINE REMOVAL. PATIENT DRESSED IN STREET CLOTHES AND TAKEN OUT TO PATIENT ENTRANCE VIA WHEELCHAIR BY BODY TECHNICIAN-PATIENT SENT WITH ALL BELONGINGS. PATIENT LEFT HOSPITAL VIA PERSONAL VEHICLE. PATIENTS DENIES QUESTIONS OR NEEDS AT DISCHARGE.
== END 2024-08-26 16:08 | disposition home or self-care (01) | DRG 154 ==
LOC: ER 09:47 → PCU 14:04
PROVIDERS: Student in an Organized Health Care Education/Training Program; ADMIT Internal Medicine
PROC: 5A09357 Assistance with Respiratory Ventilation, Less than 24 Consecutive Hours, Continuous Positive Airway Pressure (ICD-10-PCS; principal; 2024-08-22)
DX: G47.33 Obstructive sleep apnea (adult) (pediatric) (principal); J96.21 Acute and chronic respiratory failure with hypoxia; J96.22 Acute and chronic respiratory failure with hypercapnia; I48.92 Unspecified atrial flutter; E87.4 Mixed disorder of acid-base balance; I27.81 Cor pulmonale (chronic); E11.9 Type 2 diabetes mellitus without complications; J44.9 Chronic obstructive pulmonary disease, unspecified; I11.0 Hypertensive heart disease with heart failure; I48.91 Unspecified atrial fibrillation; F15.90 Other stimulant use, unspecified, uncomplicated; I50.813 Acute on chronic right heart failure; I45.10 Unspecified right bundle-branch block; Z87.891 Personal history of nicotine dependence
CPT/HCPCS: 36415; 71045; 80048; 80053; 80162; 82803; 82947; 83735; 83880; 84132; 84484; 85025; 87428-QW; 93005; 93010; 94660; 94762; 96365; 96366; 96375; 99285-25; A6590; A9270; C1751; J1160; J1940; J3480

== ENCOUNTER 2024-09-18 20:44 | Emergency (ER) | payer OTHER ==
[~2024-09-18] VITALS: Ht 203.2 cm; Wt 138.8 kg
[~2024-09-18 20:44] MED LIST changes: +DIGOX250 MCG PO; +DOCU100 PO; +ELIQUIS5 M2 PO; +JARDIANCE25 MG PO; +METO100 PO; +POTCHL20ER PO; +SPIR25 PO; +TORSE20 PO
[2024-09-18 21:28] LABS: BASOPHILS ABSOLUTE AUTO 0.05 K/mm3 (0.00-0.23); BASOPHILS PERCENT AUTO 1 % (0-2); EOSINOPHILS ABSOLUTE AUTO 0.18 K/mm3 (0.00-0.68); EOSINOPHILS PERCENT AUTO 2 % (0-6); Hematocrit 52.7 % (37.0-53.0); Hemoglobin 17.2 g/dL (13.5-17.5); IMMATURE GRAN ABSOLUTE AUTO 0.07 K/mm3 (0.00-0.10); IMMATURE GRAN PERCENT AUTO 1 % (0-1); LYMPHOCYTES PERCENT AUTO 31 % (21-46); MONOCYTES PERCENT AUTO 7 % (4-13); Mean Corpuscular HGB 30.3 pg (26.0-34.0); Mean Corpuscular HGB Conc 32.6 g/dL (31.5-36.5); Mean Corpuscular Volume 93 fL (80-100); Mean Platelet Volume 9.4 fL (9.1-12.4); NEUTROPHILS ABSOLUTE AUTO 5.27 K/mm3 (1.96-9.15); NEUTROPHILS PERCENT AUTO 59 % (41-73); Platelet Count 187 K/mm3 (150-400); RDW Standard Deviation 47.8 fL (35.1-46.3); Red Blood Cell Count 5.67 M/mm3 (4.30-5.90); White Blood Cell Count 8.97 K/mm3 (4.00-11.30)
[2024-09-18 21:40] LABS: Albumin, Blood 3.6 g/dL (3.4-5.0); Albumin/Globulin Ratio 0.9 (0.8-1.8); Bilirubin, Total 0.9 mg/dL (0.1-1.0); Bun/Creatinine Ratio 24.3 (12.0-20.0); Calcium, Blood 9.2 mg/dL (8.5-10.1); Creatinine, Blood 1.15 mg/dL (0.60-1.20); Potassium, Blood 4.2 mmol/L (3.5-5.5); Total Protein, Blood 7.6 g/dL (6.4-8.2)
[2024-09-18] MEDS ORDERED: Metoprolol Tartrate 1 MG/ML 5 ML VIAL IV PRN (21:55)
[2024-09-19] MEDS ORDERED: Metoprolol Succinate 25 MG TABCR PO ONE (00:45)
[2024-09-19 01:40] VITALS: BP 145/101
[2024-10-07] MEDS ORDERED: METO25ER PO (13:56)
[2024-10-07] MEDS ORDERED: FARXIGA5 MG PO (13:56)
== END 2024-09-19 02:05 | disposition home or self-care (01) ==
LOC: ER 20:44
PROVIDERS: Emergency Medicine
DX: R07.2 Precordial pain (principal); I10 Essential (primary) hypertension; G47.33 Obstructive sleep apnea (adult) (pediatric); J44.9 Chronic obstructive pulmonary disease, unspecified; K21.9 Gastro-esophageal reflux disease without esophagitis; Z87.891 Personal history of nicotine dependence; Z88.2 Allergy status to sulfonamides; Z88.0 Allergy status to penicillin; Z88.8 Allergy status to other drugs, medicaments and biological substances; Z91.013 Allergy to seafood; Z91.018 Allergy to other foods; Z79.01 Long term (current) use of anticoagulants; Z79.899 Other long term (current) drug therapy
CPT/HCPCS: 71046; 80053; 83690; 83880; 84484; 85025; 93005; 93010; 96374; 96376; 99285-25; A9270

== ENCOUNTER 2024-10-08 05:33 | Day surgery (SDC) | payer OTHER ==
[~2024-10-08] VITALS: Ht 198.1 cm; Wt 137.0 kg
[2024-10-08] VITALS (11 sets, daily range): BP systolic 105–145; BP diastolic 86–104
[~2024-10-08 05:33] MED LIST changes: +FARXIGA5 MG PO; +METO25ER PO
[2024-10-08] MEDS ORDERED: NS 1,000 ML IV ONE (06:44)
--- NOTE | 2024-10-08 07:00 | NUR ---
ASSUMED CARE FROM ANESTHESIA. PT AWAKE AND VERBALIZING WELL. SR 60BPM POST CARDIOVERSION.
--- NOTE | 2024-10-08 07:49 | NUR ---
PT VERBALIZED UNDERSTANDING OF WRITTEN AND VERBAL D/C INST. IV REMOVED. SR 60-70 BPM. PT AMB TO BATHROOM /C SBA. TOLERATED WELL. PT TAKEN OUT OF THE [facility]RT [facility]ENTER VIA W/C.
[2024-10-08] MEDS ORDERED: Propofol 10mg/ml 20 ml Vial (Procedural) IV ONE (10:18)
== END 2024-10-08 23:00 | disposition home or self-care (01) ==
LOC: MHTC 05:33
DX: I48.92 Unspecified atrial flutter (principal); I50.30 Unspecified diastolic (congestive) heart failure; R07.9 Chest pain, unspecified; Z79.01 Long term (current) use of anticoagulants
CPT/HCPCS: 92960; 93005; 93010; J2704; J7030